=== PATIENT | male | born 1990 | race Caucasian/White ===

== ENCOUNTER 2022-07-16 22:10 | Emergency (ER) | payer OTHER, SELFPAY ==
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
[2022-07-16 22:20] VITALS: BP 133/70; PULSE 117; RESP 16; TEMP 36.7; O2SAT 97; BMI 35.4
--- NOTE | 2022-07-16 22:22 | PC.NURSE ---
at bedside for primary eval.
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
[2022-07-16] MEDS: Ibuprofen 600 MG TABLET PO (22:33)
--- NOTE | 2022-07-16 22:39 | PC.NURSE ---
Pt to imaging
== END 2022-07-16 23:17 | disposition home or self-care (01) ==
PROVIDERS: Emergency Provider Emergency Medicine
DX: S80.211A Abrasion, right knee, initial encounter (principal); X95.9XXA Assault by unspecified firearm discharge, initial encounter; Y93.01 Activity, walking, marching and hiking; Y92.414 Local residential or business street as the place of occurrence of the external cause; Y99.9 Unspecified external cause status
CPT/HCPCS: 73552; 73560; 73590; 99282; 99283; 99284